=== PATIENT | male | born 1940 ===

== ENCOUNTER 2017-06-04 06:19 | Inpatient (IN) | payer SELFPAY ==
[2017-06-04 06:20] VITALS: BMI 26.6
[2017-06-04] MEDS ORDERED: Albuterol-Ipratrop 3 mg / 0.5 (3 ml) UD IH STA (07:35)
--- NOTE | 2017-06-04 07:53 | C.PDOC ---
History Of Present Illness 76 y/o male, homeless, is brought to ED by EMS after being found sleeping at [facility]. Pt complains of cough, SOB and not feeling well. Pt states that he was seen at [facility] [facility] earlier, but did not want to be treated there at that time. Denies chest pain, shortness of breath, sputum, or fever. Time Seen by Provider: 06/04/17 07:19 Chief Complaint (Nursing): Medical Clearance History Per: Patient History/Exam Limitations: no limitations Onset/Duration Of Symptoms: Hrs Current Symptoms Are (Timing): Still Present Severity: None Pain Scale Rating Of: 0 Reports Recently: Seen In ED Recent travel outside of the [place]: No Additional History Per: Patient, EMS Past Medical History Reviewed: Historical Data, Nursing Documentation, Vital Signs Vital Signs: Last Vital Signs Temp 98.3 F 06/04/17 13:58 Pulse 78 06/04/17 13:58 Resp 20 06/04/17 13:58 BP 116/80 06/04/17 13:58 Pulse Ox 94 L 06/04/17 15:32 - Medical History PMH: Anxiety, COPD Denies: HIV, Chronic Kidney Disease - [facility] Procedures INTRODUCE OF OTH THERAP SUBST INTO RESP TRACT, VIA OPENING (05/29/17) INTRODUCTION OF SERUM/TOX/VACCINE INTO MUSCLE, PERC APPROACH (05/24/17) Family History: States: Unknown Family Hx - Social History Hx Alcohol Use: No Hx Substance Use: No - Immunization History Hx Tetanus Toxoid Vaccination: No Hx Influenza Vaccination: No Review Of Systems Except As Marked, All Systems Reviewed And Found Negative. Constitutional: Negative for: Fever, Chills Cardiovascular: Negative for: Chest Pain, Palpitations, Edema, Light Headedness Respiratory: Positive for: Cough. Negative for: Shortness of Breath, Hemoptysis , Sputum Physical Exam - Physical Exam Appears: Non-toxic, No Acute Distress, Unkempt (disheveled) Skin: Normal Color, Warm, Dry Head: Atraumatic, Normacephalic Eye(s): bilateral: Normal Inspection Oral Mucosa: Moist Neck: Normal ROM, Supple Chest: Symmetrical Cardiovascular: Rhythm Regular, No Murmur Respiratory: No Accessory Muscle Use, No Rales, Rhonchi, No Wheezing Gastrointestinal/Abdominal: Soft, No Tenderness Extremity: Normal ROM, No Pedal Edema, No Deformity Neurological/Psych: Oriented x3, Normal Speech, Normal Cognition Gait: Steady ED Course And Treatment - Laboratory Results Result Diagrams: 06/04/17 10:36 06/04/17 10:36 Lab Interpretation: No Acute Changes ECG: Interpreted By Me ECG Rhythm: Sinus Rhythm, R BBB ECG Interpretation: No Acute Changes Rate From EC O2 Sat by Pulse Oximetry: 94 Pulse Ox Interpretation: Normal - Radiology CXR: Interpreted by Me CXR Interpretation: Yes: No Acute Disease Progress Note: CXR ordered and reviewed. Patient was given nebulizer treatment. Labs ordered. Treated with duonebs and solumedrol IV. Patient reports cough and dyspnea. 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 - Scribe Statement The provider has reviewed the documentation as recorded by the Scribe Ranjith Acevedo All medical record entries made by the Sin were at my direction and personally dictated by me. I have reviewed the chart and agree that the record accurately reflects my personal performance of the history, physical exam, medical decision making, and the department course for this patient. I have also personally directed, reviewed, and agree with the discharge instructions and disposition. Decision To Admit - Pt Status Changed To: Hospital Disposition Of: Observation - InPatient: Physician Admission Certification: I certify that this patient requires 2 or more midnights of care for the following reason:: COPD exacerbation. Dyspnea - . Bed Request Type: Regular Admitting Physician: Anamika Cardozo Patient Diagnosis: COPD exacerbation, Dyspnea
[2017-06-04] MEDS ORDERED: Albuterol-Ipratrop 3 mg / 0.5 (3 ml) UD ONE (08:19)
--- NOTE | 2017-06-04 09:42 | RAD ---
HISTORY: Cough COMPARISON: No prior. TECHNIQUE: Chest PA and lateral FINDINGS: LUNGS: Biapical pleural thickening with upper lobe granulomatous changes. Prominent diffuse increased interstitial lung markings bilaterally which may represent underlying edema and or infiltrate superimposed on chronic fibrotic changes. Scattered nodular densities in both lungs. More patchy consolidative changes at the right lung base and left costophrenic angle. PLEURA: Small right and trace left pleural effusion. CARDIOVASCULAR: Cardiomegaly. Calcification at the aortic knob. OSSEOUS STRUCTURES: Degenerative changes in the spine and shoulders. VISUALIZED UPPER ABDOMEN: Normal. OTHER FINDINGS: None. IMPRESSION: Biapical pleural thickening with upper lobe granulomatous changes. Prominent diffuse increased interstitial lung markings bilaterally which may represent underlying edema and or infiltrate superimposed on chronic fibrotic changes. Scattered nodular densities in both lungs. More patchy consolidative changes at the right lung base and left costophrenic angle.
[2017-06-04 10:44] LABS: BASO # 0.1 K/uL (0.0-0.2); BASO % 0.6 % (0.0-2.0); EOS # 0.1 K/uL (0.0-0.7); EOS % 0.7 % (0.0-4.0); HEMATOCRIT 35.9 % (35.0-51.0); LYMPH % 12.2 % (20.0-40.0); MEAN CELL VOLUME 77.2 fL (80.0-94.0); MEAN CORPUSCULAR HEMOGLOBIN 24.5 pg (27.0-31.0); MEAN CORPUSCULAR HGB CONC 31.7 g/dL (33.0-37.0); MEAN PLATELET VOLUME 7.9 fL (7.2-11.7); MONO # 0.7 K/uL (0.0-0.8); MONO % 8.5 % (0.0-10.0); RED CELL DISTRIBUTION WIDTH 17.2 % (11.5-14.5); WHITE BLOOD COUNT 8.4 K/uL (4.8-10.8)
[2017-06-04 10:50] LABS: CHLORIDE 97 mmol/L (98-107)
[2017-06-04 10:51] LABS: POTASSIUM 3.8 mmol/L (3.6-5.2); SODIUM 131 mmol/L (132-148)
[2017-06-04 10:53] LABS: ALB/GLOB RATIO 0.9 (1.0-2.1); ALKALINE PHOSPHATASE 91 U/L (38-126); AST/SGOT 17 U/L (17-59); BILIRUBIN,TOTAL 0.8 mg/dL (0.2-1.3); BLOOD UREA NITROGEN 22 mg/dL (9-20); CARBON DIOXIDE 26 mmol/L (22-30); GFR AFRICAN-AMERICAN > 60; TOTAL PROTEIN 5.8 g/dL (6.3-8.3)
[2017-06-04 10:54] LABS: ALT/SGPT 27 U/L (21-72); CALCIUM 6.9 mg/dl (8.6-10.4); GLUCOSE,RANDOM 113 mg/dL (75-110)
[2017-06-04 12:20] LABS: RBC URINE 1 /hpf (0-3); URINE BACTERIA RARE (<OCC); URINE BILIRUBIN NEGATIVE (NEGATIVE); URINE BLOOD NEGATIVE (NEGATIVE); URINE CALCIUM OXALATE CRYSTALS MOD /hpf (<OCC); URINE COLOR Yellow (YELLOW); URINE GLUCOSE (UA) NORMAL (Normal); URINE KETONE NEGATIVE (NEGATIVE); URINE LEUKOCYTE ESTERASE NEG Leu/uL (Negative); URINE PROTEIN NEGATIVE (NEGATIVE); URINE UROBILINOGEN NORMAL mg/dL (0.2-1.0); WBC URINE 3 /hpf (0-5)
[2017-06-04] MEDS ORDERED: MethylPREDNISolone 40 mg Vial IVP STA (13:15)
[2017-06-04] MEDS ORDERED: MethylPREDNISolone 40 mg Vial ONE (13:40)
--- NOTE | 2017-06-04 15:21 | CP.PCM.HP ---
<Negrito Delgado Izabella - Last Filed: 06/04/17 17:43> History of Present Illness - History of Present Illness History of Present Illness: This is a 76 year old homeless male with a past medical history COPD and Pulmonary Fibrosis, who was brought to the ED by EMS after he was found sleeping at [facility] and the complained of shortness of breath. He still currently complains of shortness of breath. He's had previous admissions for the same complaint. He is a poor historian and some of the history was collected from previous notes. He denies chest pain, fever, chills, dizziness, nausea and vomiting. 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 absent: Dyspnea - Gastrointestinal Gastrointestinal: absent: Abdominal Pain, Constipation, Diarrhea - Genitourinary Genitourinary: absent: Dysuria - Musculoskeletal Musculoskeletal: absent: Back Pain - Neurological Neurological: absent: Convulsions, Dizziness Past Patient History - Infectious Disease Hx of Infectious Diseases: None - Tetanus Immunizations Tetanus Immunization: Unknown - Past Medical History & Family History Past Medical History?: Yes - Past Social History Smoking Status: Never Smoked - CARDIAC Hx Cardiac Disorders: No - PULMONARY Hx Chronic Obstructive Pulmonary Disease (COPD): Yes - NEUROLOGICAL Hx Neurological Disorder: No - HEENT Hx HEENT Problems: No - RENAL Hx Chronic Kidney Disease: No - ENDOCRINE/METABOLIC Hx Endocrine Disorders: No - HEMATOLOGICAL/ONCOLOGICAL Hx Human Immunodeficiency Virus (HIV): No - INTEGUMENTARY Hx Dermatological Problems: No - MUSCULOSKELETAL/RHEUMATOLOGICAL Hx Musculoskeletal Disorders: No Hx Falls: No - GASTROINTESTINAL Hx Gastrointestinal Disorders: No - GENITOURINARY/GYNECOLOGICAL Hx Genitourinary Disorders: No - PSYCHIATRIC Hx Anxiety: Yes Hx Substance Use: No - SURGICAL HISTORY Hx Surgeries: No - ANESTHESIA Hx Anesthesia: Yes Hx Anesthesia Reactions: No Hx Malignant Hyperthermia: No Meds Home Medications: Home Medication List Medication Instructions Recorded Confirmed Type Albuterol HFA [Ventolin HFA 90 2 puff IH Q4 PRN #1 inhaler 06/08/17 Rx mcg/actuation (8 g)] Fluticasone Propionate [Flovent 0.11 mg IH Q12H #1 ml 06/08/17 Rx Hfa] Furosemide [Lasix] 20 mg PO DAILY #10 udc 06/08/17 Rx Methylprednisolone Sod Succ 10 gm PO TID #8 pds 06/08/17 Rx [Solu-Medrol] Allergies/Adverse Reactions: Allergies Allergy/AdvReac Type Severity Reaction Status Date / Time No Known Allergies Allergy Verified 06/04/17 06:34 Physical Exam - Constitutional Appears: No Acute Distress, Unkempt - Head Exam Head Exam: ATRAUMATIC, NORMAL INSPECTION - Eye Exam Eye Exam: EOMI - ENT Exam ENT Exam: Mucous Membranes Moist - Neck Exam Neck exam: Positive for: Normal Inspection. Negative for: Tenderness - Respiratory Exam Respiratory Exam: Rales, Rhonchi, Wheezes. absent: Clear to Auscultation Bilateral - Cardiovascular Exam Cardiovascular Exam: REGULAR RHYTHM, RRR, +S1, +S2. absent: Bradycardia, Tachycardia, Irregular Rhythm - GI/Abdominal Exam GI & Abdominal Exam: Normal Bowel Sounds, Soft. absent: Tenderness - Extremities Exam Extremities exam: Positive for: normal inspection. Negative for: pedal edema Additional comments: digital clubbing noted - Back Exam Back exam: NORMAL INSPECTION - Neurological Exam Neurological exam: Alert, Oriented x3 - Psychiatric Exam Psychiatric exam: Normal Affect, Normal Mood - Skin Skin Exam: Intact, Normal Color, Warm Results - Vital Signs Recent Vital Signs: Last Vital Signs Temp 98.3 F 06/04/17 13:58 Pulse 78 06/04/17 13:58 Resp 20 06/04/17 13:58 BP 116/80 06/04/17 13:58 Pulse Ox 95 06/04/17 13:58 - Labs Result Diagrams: 06/04/17 10:36 06/04/17 10:36 Labs: Laboratory Results - last 24 hr 06/04/17 06/04/17 06/04/17 10:36 10:36 12:10 WBC 8.4 RBC 4.65 Hgb 11.4 L Hct 35.9 MCV 77.2 L MCH 24.5 L MCHC 31.7 L RDW 17.2 H Plt Count 244 MPV 7.9 Neut % (Auto) 78.0 H Lymph % (Auto) 12.2 L [place] % (Auto) 8.5 Eos % (Auto) 0.7 Baso % (Auto) 0.6 Neut # 6.6 Lymph # 1.0 [place] # 0.7 Eos # 0.1 Baso # 0.1 Sodium 131 L Potassium 3.8 Chloride 97 L Carbon Dioxide 26 Anion Gap 12 BUN 22 H Creatinine 0.6 L Est GFR ( Amer) > 60 Est GFR (Non-Af Amer) > 60 Random Glucose 113 H Calcium 6.9 L Total Bilirubin 0.8 AST 17 D ALT 27 Alkaline Phosphatase 91 CK-MB (Mass) 1.24 Troponin I < 0.0120 NT-Pro-B Natriuret Pep 138 Total Protein 5.8 L Albumin 2.7 L Globulin 3.1 Albumin/Globulin Ratio 0.9 L Lipase 135 Urine Color Yellow Urine Clarity Clear Urine pH 5.0 Ur Specific [place] 1.026 Urine Protein Negative Urine Glucose (UA) Normal Urine Ketones Negative Urine Blood Negative Urine Nitrate Negative Urine Bilirubin Negative Urine Urobilinogen Normal Ur Leukocyte Esterase Neg Urine WBC (Auto) 3 Urine RBC (Auto) 1 Ur Squamous Epith Cells 1 Calcium Oxalate Crystal Mod H Urine Bacteria Rare Assessment & Plan (1) COPD exacerbation Assessment and Plan: Patient w/ baseline wheezing, saturating 94% CXR 06/04/17 no active disease Duonebs via nebulizer q4h Prednisone 20mg po qd Advair 1 puff q12h Azithromycin 500mg ivpb qd started 06/05/17, for 7 days sputum culture, f/u Status: Acute (2) Anemia Assessment and Plan: Hgb 11.4 on admission Most likely anemia of chronic disease Status: Chronic (3) DM type 2 (diabetes mellitus, type 2) Assessment and Plan: Accuchecks RISS - low dose Diabetic Diet HgA1C, f/u Status: Chronic (4) Pulmonary fibrosis Assessment and Plan: Chronic 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 (5) Homeless Assessment and Plan: Will discharge to senior care Status: Chronic (6) Prophylactic measure Assessment and Plan: consistent carb diet SCDs lovenox 40mg sc qd Pepcid 20mg po qd Status: Acute <Jerry Regalado - Last Filed: 06/08/17 15:31> History of Present Illness - History of Present Illness History of Present Illness: CC: Shortness of breath Results - Vital Signs Recent Vital Signs: Last Vital Signs Temp 97.9 F 06/08/17 07:12 Pulse 75 06/08/17 07:12 Resp 20 06/08/17 07:12 BP 133/75 06/08/17 10:31 Pulse Ox 96 06/08/17 07:12 - Labs Result Diagrams: 06/08/17 06:24 06/08/17 06:24 Labs: Laboratory Results - last 24 hr 06/07/17 06/07/17 06/08/17 16:17 21:02 06:24 WBC 8.8 RBC 4.58 Hgb 11.2 L Hct 35.6 MCV 77.6 L MCH 24.3 L MCHC 31.4 L RDW 18.0 H Plt Count 228 MPV 8.1 Neut % (Auto) 80.6 H Lymph % (Auto) 10.3 L [place] % (Auto) 9.0 Eos % (Auto) 0.0 Baso % (Auto) 0.1 Neut # 7.1 H Lymph # 0.9 L [place] # 0.8 Eos # 0.0 Baso # 0.0 Sodium Potassium Chloride Carbon Dioxide Anion Gap BUN Creatinine Est GFR ( Amer) Est GFR (Non-Af Amer) POC Glucose (mg/dL) 291 H 388 H Random Glucose Calcium Total Bilirubin AST ALT Alkaline Phosphatase Total Protein Albumin Globulin Albumin/Globulin Ratio 06/08/17 06/08/17 06/08/17 06:24 07:25 11:14 WBC RBC Hgb Hct MCV MCH MCHC RDW Plt Count MPV Neut % (Auto) Lymph % (Auto) [place] % (Auto) Eos % (Auto) Baso % (Auto) Neut # Lymph # [place] # Eos # Baso # Sodium 132 Potassium 4.6 Chloride 95 L Carbon Dioxide 28 Anion Gap 14 BUN 25 H Creatinine 0.8 Est GFR ( Amer) > 60 Est GFR (Non-Af Amer) > 60 POC Glucose (mg/dL) 148 H 309 H Random Glucose 220 H Calcium 8.3 L Total Bilirubin 0.6 AST 18 ALT 34 Alkaline Phosphatase 96 Total Protein 7.0 Albumin 2.9 L Globulin 4.1 H Albumin/Globulin Ratio 0.7 L Attending/Attestation - Attestation I have personally seen and examined this patient.: Yes I have fully participated in the care of the patient.: Yes I have reviewed all pertinent clinical information: Yes Notes (Text): Acute copd exacerbation
[2017-06-04] MEDS: Fluticasone-Salmeterol 250-50mcg Diskus INH SCH (22:05)
[2017-06-04] MEDS: Albuterol-Ipratrop 3 mg / 0.5 (3 ml) UD INH SCH (22:06)
[2017-06-04] MEDS: (Novolin R) Insulin Human Regular 100 units/ml vial SC SCH (22:06)
[2017-06-05] MEDS: Albuterol-Ipratrop 3 mg / 0.5 (3 ml) UD INH SCH ×6 (00:43→20:20)
[2017-06-05] MEDS: Fluticasone-Salmeterol 250-50mcg Diskus INH SCH ×2 (07:45→20:21)
[2017-06-05 08:31] VITALS: RESP 20
[2017-06-05] MEDS: (Novolin R) Insulin Human Regular 100 units/ml vial SC SCH ×4 (09:08→21:44)
[2017-06-05] MEDS: Azithromycin 500 MG in Sodium Chloride 0.9% 250 ML IVPB SCH (10:40)
[2017-06-05] MEDS: Enoxaparin 40 mg Syringe SC SCH (10:41)
--- NOTE | 2017-06-05 12:27 | CP.PCM.PN ---
<Negrito Delgado - Last Filed: 06/05/17 12:25> Subjective - Date & Time of Evaluation Date of Evaluation: 06/05/17 Time of Evaluation: 12:25 - Subjective Subjective: PGY-1 medicine note. There were no acute events overnight. Patient was seen and examined this AM at bedside. Patient was resting comfortably in bed watching television. Patient had no complaints at this time. He said he was not hearing voices. Patient denied chest pain, shortness of breath, nausea, vomiting, fever, chills, diarrhea, constipation, headache, vision changes, abdominal pain. Objective - Vital Signs/Intake and Output Vital Signs (last 24 hours): Temp Pulse Resp BP Pulse Ox 98.1 F 78 20 105/61 96 06/05/17 08:30 06/05/17 08:30 06/05/17 08:30 06/05/17 08:30 06/05/17 08:30 Intake and Output: 06/05/17 06/05/17 06:59 18:59 Intake Total 250 240 Output Total 200 Balance 250 40 - Medications Medications: Current Medications Albuterol/Ipratropium (Duoneb 3 Mg/0.5 Mg (3 Ml) Ud) 3 ml INH RQ4 [facility] Last Admin: 06/05/17 07:45 Dose: 3 ml Enoxaparin Sodium (Lovenox) 40 mg SC DAILY [facility] Last Admin: 06/05/17 10:41 Dose: 40 mg Famotidine (Pepcid) 20 mg IVP DAILY [facility] Last Admin: 06/05/17 10:41 Dose: 20 mg Azithromycin 500 mg/ Sodium (Chloride) 250 mls @ 250 mls/hr IVPB DAILY [facility] Stop: 06/11/17 10:59 Last Admin: 06/05/17 10:40 Dose: 250 mls/hr Insulin Human Regular (Novolin R) 0 unit SC ACHS [facility] PRN Reason: Protocol Last Admin: 06/05/17 09:08 Dose: 4 unit Prednisone (Prednisone Tab) 20 mg PO DAILY [facility] Last Admin: 06/05/17 10:41 Dose: 20 mg Fluticasone/Salmeterol (Advair Diskus 250/50) 1 puff INH RQ12 [facility] Last Admin: 06/05/17 07:45 Dose: 1 puff - Labs Labs: 06/04/17 10:36 06/04/17 10:36 - Additional Findings Additional findings: - Constitutional Appears: No Acute Distress, Unkempt - Head Exam Head Exam: ATRAUMATIC, NORMAL INSPECTION - Eye Exam Eye Exam: EOMI - ENT Exam ENT Exam: Mucous Membranes Moist - Neck Exam Neck exam: Positive for: Normal Inspection. Negative for: Tenderness - Respiratory Exam Respiratory Exam: Wheezes. absent: Clear to Auscultation Bilateral - Cardiovascular Exam Cardiovascular Exam: REGULAR RHYTHM, RRR, +S1, +S2. absent: Bradycardia, Tachycardia, Irregular Rhythm - GI/Abdominal Exam GI & Abdominal Exam: Normal Bowel Sounds, Soft. absent: Tenderness - Extremities Exam Extremities exam: Positive for: normal inspection. Negative for: pedal edema Additional comments: digital clubbing noted - Back Exam Back exam: NORMAL INSPECTION - Neurological Exam Neurological exam: Alert, Oriented x3 - Psychiatric Exam Psychiatric exam: Normal Affect, Normal Mood - Skin Skin Exam: Intact, Normal Color, Warm Assessment and Plan (1) COPD exacerbation Status: Acute (2) Anemia Status: Chronic (3) DM type 2 (diabetes mellitus, type 2) Status: Chronic (4) Pulmonary fibrosis Status: Chronic (5) Homeless Status: Chronic (6) Prophylactic measure Status: Acute - Assessment and Plan (Free Text) Assessment: (1) COPD exacerbation Assessment and Plan: Patient w/ baseline wheezing, saturating 94% CXR 06/04/17 no active disease Duonebs via nebulizer q4h Prednisone 20mg po qd Advair 1 puff q12h Azithromycin 500mg ivpb qd started 06/05/17, for 7 days sputum culture, f/u Status: Acute (2) Anemia Assessment and Plan: Hgb 11.4 on admission Most likely anemia of chronic disease Status: Chronic (3) DM type 2 (diabetes mellitus, type 2) Assessment and Plan: Accuchecks RISS - low dose Diabetic Diet HgA1C, f/u Status: Chronic (4) Pulmonary fibrosis Assessment and Plan: Chronic 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 (5) Homeless Assessment and Plan: Will discharge to [facility] Status: Chronic (6) Prophylactic measure Assessment and Plan: consistent carb diet SCDs lovenox 40mg sc qd Pepcid 20mg po qd Status: Acute <Anamika Cardozo - Last Filed: 06/05/17 14:01> Objective - Vital Signs/Intake and Output Vital Signs (last 24 hours): Temp Pulse Resp BP Pulse Ox 98.1 F 78 20 105/61 96 06/05/17 08:30 06/05/17 08:30 06/05/17 08:30 06/05/17 08:30 06/05/17 08:30 Intake and Output: 06/05/17 06/05/17 06:59 18:59 Intake Total 250 240 Output Total 200 Balance 250 40 - Medications Medications: Current Medications Albuterol/Ipratropium (Duoneb 3 Mg/0.5 Mg (3 Ml) Ud) 3 ml INH RQ4 [facility] Last Admin: 06/05/17 07:45 Dose: 3 ml Enoxaparin Sodium (Lovenox) 40 mg SC DAILY [facility] Last Admin: 06/05/17 10:41 Dose: 40 mg Famotidine (Pepcid) 20 mg IVP DAILY [facility] Last Admin: 06/05/17 10:41 Dose: 20 mg Azithromycin 500 mg/ Sodium (Chloride) 250 mls @ 250 mls/hr IVPB DAILY [facility] Stop: 06/11/17 10:59 Last Admin: 06/05/17 10:40 Dose: 250 mls/hr Insulin Human Regular (Novolin R) 0 unit SC ACHS [facility] PRN Reason: Protocol Last Admin: 06/05/17 13:24 Dose: 3 unit Prednisone (Prednisone Tab) 20 mg PO DAILY [facility] Last Admin: 06/05/17 10:41 Dose: 20 mg Fluticasone/Salmeterol (Advair Diskus 250/50) 1 puff INH RQ12 [facility] Last Admin: 06/05/17 07:45 Dose: 1 puff - Labs Labs: 06/04/17 10:36 06/04/17 10:36 Attending/Attestation - Attestation I have personally seen and examined this patient.: Yes I have fully participated in the care of the patient.: Yes I have reviewed all pertinent clinical information, including history, physical exam and plan: Yes Notes (Text): This is a 76 years old Homeless male with history of COPD,pulmonary fibrosis, anemia,diabetes mellitus was brought in for SOB 1.Exacerbation of COPD and bronchitis Has wheezing and cough chest x ray without pneumonia on zithromax,solumedrol,duoneb and advair 2 Anemia likely chronic 3.DM 4.Pulmonary fibrosis 5.Homeless 6.Leg edema- Echo done on 12/21/2016 normal EF,mild to moderate dilated RV and mild to moderste impaired RV function patient was seen and examined.Discussed with the resident I agree with the documentation of the resident's assessment and plan
[2017-06-05 13:54] LABS: BASO % 0.2 % (0.0-2.0); HEMATOCRIT 31.8 % (35.0-51.0); LYMPH # 0.8 K/uL (1.0-4.3); LYMPH % 9.2 % (20.0-40.0); MEAN CELL VOLUME 77.5 fL (80.0-94.0); MEAN CORPUSCULAR HEMOGLOBIN 24.6 pg (27.0-31.0); MEAN CORPUSCULAR HGB CONC 31.8 g/dL (33.0-37.0); MEAN PLATELET VOLUME 8.1 fL (7.2-11.7); MONO # 0.4 K/uL (0.0-0.8); MONO % 5.3 % (0.0-10.0); PLATELET COUNT 216 K/uL (130-400); RED CELL DISTRIBUTION WIDTH 17.4 % (11.5-14.5); WHITE BLOOD COUNT 8.2 K/uL (4.8-10.8)
[2017-06-05 14:05] LABS: CHLORIDE 99 mmol/L (98-107); SODIUM 131 mmol/L (132-148)
[2017-06-05 14:06] LABS: POTASSIUM 4.5 mmol/L (3.6-5.2)
[2017-06-05 14:08] LABS: ALB/GLOB RATIO 0.9 (1.0-2.1); ALKALINE PHOSPHATASE 100 U/L (38-126); ALT/SGPT 27 U/L (21-72); AST/SGOT 21 U/L (17-59); BILIRUBIN,TOTAL 0.6 mg/dL (0.2-1.3); BLOOD UREA NITROGEN 18 mg/dL (9-20); CARBON DIOXIDE 26 mmol/L (22-30); GFR AFRICAN-AMERICAN > 60; GLUCOSE,RANDOM 153 mg/dL (75-110); TOTAL PROTEIN 5.6 g/dL (6.3-8.3)
[2017-06-05 14:09] LABS: CALCIUM 7.7 mg/dl (8.6-10.4)
[2017-06-05 14:32] LABS: NEUTROPHIL 95 % (50-75); TOTAL CELLS COUNTED 100
[2017-06-05] MEDS: MethylPREDNISolone 40 mg Vial IVP SCH (18:02)
[2017-06-06] MEDS: Albuterol-Ipratrop 3 mg / 0.5 (3 ml) UD INH SCH ×6 (00:49→23:41)
[2017-06-06 07:15] LABS: BASO % 0.1 % (0.0-2.0); HEMATOCRIT 29.9 % (35.0-51.0); LYMPH % 12.8 % (20.0-40.0); MEAN CELL VOLUME 77.7 fL (80.0-94.0); MEAN CORPUSCULAR HEMOGLOBIN 24.6 pg (27.0-31.0); MEAN CORPUSCULAR HGB CONC 31.7 g/dL (33.0-37.0); MEAN PLATELET VOLUME 7.9 fL (7.2-11.7); MONO # 0.5 K/uL (0.0-0.8); MONO % 7.2 % (0.0-10.0); NRBC % 0.1 % (0.0-2.0); RED CELL DISTRIBUTION WIDTH 17.6 % (11.5-14.5); WHITE BLOOD COUNT 7.5 K/uL (4.8-10.8)
[2017-06-06 08:27] LABS: CHLORIDE 98 mmol/L (98-107)
[2017-06-06 08:28] LABS: POTASSIUM 4.4 mmol/L (3.6-5.2); SODIUM 131 mmol/L (132-148)
[2017-06-06 08:30] LABS: ALB/GLOB RATIO 0.8 (1.0-2.1); AST/SGOT 19 U/L (17-59); BILIRUBIN,TOTAL 0.5 mg/dL (0.2-1.3); BLOOD UREA NITROGEN 19 mg/dL (9-20); CARBON DIOXIDE 27 mmol/L (22-30); GFR AFRICAN-AMERICAN > 60; GLUCOSE,RANDOM 239 mg/dL (75-110); TOTAL PROTEIN 5.3 g/dL (6.3-8.3)
[2017-06-06 08:31] LABS: ALKALINE PHOSPHATASE 85 U/L (38-126); ALT/SGPT 30 U/L (21-72); CALCIUM 7.6 mg/dl (8.6-10.4)
[2017-06-06] MEDS: Fluticasone-Salmeterol 250-50mcg Diskus INH SCH ×2 (08:38→21:01)
[2017-06-06] MEDS: (Novolin R) Insulin Human Regular 100 units/ml vial SC SCH ×4 (08:39→22:06)
--- NOTE | 2017-06-06 11:06 | CARD ---
APPROVED REPORT EKG Measurement Heart [id number] <Conclusion> Normal sinus rhythm Right bundle branch block Abnormal ECG
[2017-06-06] MEDS: Azithromycin 500 MG in Sodium Chloride 0.9% 250 ML IVPB SCH (11:37)
[2017-06-06] MEDS: MethylPREDNISolone 40 mg Vial IVP SCH ×2 (11:38→18:28)
[2017-06-06] MEDS: Enoxaparin 40 mg Syringe SC SCH (11:38)
--- NOTE | 2017-06-06 15:34 | CP.PCM.PN ---
<Negrito Delgado R - Last Filed: 06/06/17 15:29> Subjective - Date & Time of Evaluation Date of Evaluation: 06/06/17 Time of Evaluation: 15:29 - Subjective Subjective: PGY-1 medicine note. No acute events overnight. Patient was seen and examined at bedside. He is AAOx2 (he did not know what year it was). Patient had no complaints at this time. Patient denied chest pain, shortness of breath, nausea, vomiting, fever, chills, diarrhea, constipation, headache, vision changes, abdominal pain. Objective - Vital Signs/Intake and Output Vital Signs (last 24 hours): Temp Pulse Resp BP Pulse Ox 98.1 F 80 20 148/74 98 06/06/17 08:18 06/06/17 08:18 06/06/17 08:18 06/06/17 08:18 06/06/17 08:18 Intake and Output: 06/06/17 06/06/17 06:59 18:59 Intake Total 840 Output Total 1000 Balance -160 - Medications Medications: Current Medications Albuterol/Ipratropium (Duoneb 3 Mg/0.5 Mg (3 Ml) Ud) 3 ml INH RQ4 [facility] Last Admin: 06/06/17 11:27 Dose: 3 ml Enoxaparin Sodium (Lovenox) 40 mg SC DAILY [facility] Last Admin: 06/06/17 11:38 Dose: 40 mg Famotidine (Pepcid) 20 mg IVP DAILY [facility] Last Admin: 06/06/17 11:39 Dose: 20 mg Azithromycin 500 mg/ Sodium (Chloride) 250 mls @ 250 mls/hr IVPB DAILY [facility] Stop: 06/11/17 10:59 Last Admin: 06/06/17 11:37 Dose: 250 mls/hr Insulin Human Regular (Novolin R) 0 unit SC ACHS [facility] PRN Reason: Protocol Last Admin: 06/06/17 11:43 Dose: 2 unit Methylprednisolone (Solu-Medrol) 40 mg IVP BID [facility] Last Admin: 06/06/17 11:38 Dose: 40 mg Fluticasone/Salmeterol (Advair Diskus 250/50) 1 puff INH RQ12 [facility] Last Admin: 06/06/17 08:38 Dose: 1 puff - Labs Labs: 06/06/17 06:58 06/06/17 06:58 - Additional Findings Additional findings: - Constitutional Appears: No Acute Distress, Unkempt - Head Exam Head Exam: ATRAUMATIC, NORMAL INSPECTION - Eye Exam Eye Exam: EOMI - ENT Exam ENT Exam: Mucous Membranes Moist - Neck Exam Neck exam: Positive for: Normal Inspection. Negative for: Tenderness - Respiratory Exam Respiratory Exam: Wheezes. absent: Clear to Auscultation Bilateral - Cardiovascular Exam Cardiovascular Exam: REGULAR RHYTHM, RRR, +S1, +S2. absent: Bradycardia, Tachycardia, Irregular Rhythm - GI/Abdominal Exam GI & Abdominal Exam: Normal Bowel Sounds, Soft. absent: Tenderness - Extremities Exam Extremities exam: Positive for: normal inspection. Negative for: pedal edema Additional comments: digital clubbing noted - Back Exam Back exam: NORMAL INSPECTION - Neurological Exam Neurological exam: Alert, Oriented x3 - Psychiatric Exam Psychiatric exam: Normal Affect, Normal Mood - Skin Skin Exam: Intact, Normal Color, Warm Assessment and Plan (1) COPD exacerbation Status: Acute (2) Anemia Status: Chronic (3) DM type 2 (diabetes mellitus, type 2) Status: Chronic (4) Pulmonary fibrosis Status: Chronic (5) Homeless Status: Chronic (6) Prophylactic measure Status: Acute - Assessment and Plan (Free Text) Assessment: (1) COPD exacerbation Assessment and Plan: Patient w/ baseline wheezing, saturating 94% CXR 06/04/17 no active disease Duonebs via nebulizer q4h solu-medrol 40mg ivp bid Advair 1 puff q12h Azithromycin 500mg ivpb qd started 06/05/17, for 7 days sputum culture, f/u Status: Acute (2) Anemia Assessment and Plan: Hgb 11.4 on admission Most likely anemia of chronic disease Status: Chronic (3) DM type 2 (diabetes mellitus, type 2) Assessment and Plan: Accuchecks RISS - low dose Diabetic Diet HgA1C 8.0 Status: Chronic (4) Pulmonary fibrosis Assessment and Plan: Chronic 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 (5) Homeless Assessment and Plan: Will discharge to long-term Status: Chronic (6) Prophylactic measure Assessment and Plan: consistent carb diet SCDs lovenox 40mg sc qd Pepcid 20mg po qd Social work referral, pt is homeless Status: Acute <Fito Bacon - Last Filed: 06/06/17 16:39> Objective - Vital Signs/Intake and Output Vital Signs (last 24 hours): Temp Pulse Resp BP Pulse Ox 98.1 F 80 20 148/74 98 06/06/17 08:18 06/06/17 08:18 06/06/17 08:18 06/06/17 08:18 06/06/17 08:18 Intake and Output: 06/06/17 06/06/17 06:59 18:59 Intake Total 840 490 Output Total 1000 Balance -160 490 - Medications Medications: Current Medications Albuterol/Ipratropium (Duoneb 3 Mg/0.5 Mg (3 Ml) Ud) 3 ml INH RQ4 [facility] Last Admin: 06/06/17 15:59 Dose: 3 ml Enoxaparin Sodium (Lovenox) 40 mg SC DAILY [facility] Last Admin: 06/06/17 11:38 Dose: 40 mg Famotidine (Pepcid) 20 mg IVP DAILY [facility] Last Admin: 06/06/17 11:39 Dose: 20 mg Azithromycin 500 mg/ Sodium (Chloride) 250 mls @ 250 mls/hr IVPB DAILY [facility] Stop: 06/11/17 10:59 Last Admin: 06/06/17 11:37 Dose: 250 mls/hr Insulin Human Regular (Novolin R) 0 unit SC ACHS [facility] PRN Reason: Protocol Last Admin: 06/06/17 11:43 Dose: 2 unit Methylprednisolone (Solu-Medrol) 40 mg IVP BID [facility] Last Admin: 06/06/17 11:38 Dose: 40 mg Fluticasone/Salmeterol (Advair Diskus 250/50) 1 puff INH RQ12 [facility] Last Admin: 06/06/17 08:38 Dose: 1 puff - Labs Labs: 06/06/17 06:58 06/06/17 06:58 Attending/Attestation - Attestation I have personally seen and examined this patient.: Yes I have fully participated in the care of the patient.: Yes I have reviewed all pertinent clinical information, including history, physical exam and plan: Yes Notes (Text): Medical attending: Patient was seen and examined by me, agree with the above note by medical device. This is my first time seeing patient, reviewed previous labs and notes as well as discussed with the patient. On examination the patient still had active wheezing on exhalation however appeared to be minimal. At this time were to continue with IV Solu-Medrol as well as the DuoNeb nebulizers. Also will continue the Advair twice a day as well He is ready been started on IV antibiotics which we will be continuing. I explained to the patient possibly he could be discharged tomorrow Thank you very much Fito Bacon
[2017-06-07] MEDS: Albuterol-Ipratrop 3 mg / 0.5 (3 ml) UD INH SCH ×6 (03:13→23:46)
[2017-06-07 06:17] LABS: BASO % 0.1 % (0.0-2.0); HEMATOCRIT 31.3 % (35.0-51.0); LYMPH # 0.7 K/uL (1.0-4.3); LYMPH % 9.8 % (20.0-40.0); MEAN CELL VOLUME 77.2 fL (80.0-94.0); MEAN CORPUSCULAR HEMOGLOBIN 24.5 pg (27.0-31.0); MEAN CORPUSCULAR HGB CONC 31.7 g/dL (33.0-37.0); MEAN PLATELET VOLUME 8.1 fL (7.2-11.7); MONO # 0.4 K/uL (0.0-0.8); MONO % 5.6 % (0.0-10.0); PLATELET COUNT 201 K/uL (130-400); RED CELL DISTRIBUTION WIDTH 17.7 % (11.5-14.5); WHITE BLOOD COUNT 7.4 K/uL (4.8-10.8)
[2017-06-07 07:31] LABS: CHLORIDE 98 mmol/L (98-107); SODIUM 131 mmol/L (132-148)
[2017-06-07 07:33] LABS: BILIRUBIN,TOTAL 0.6 mg/dL (0.2-1.3); GFR AFRICAN-AMERICAN > 60
[2017-06-07 07:34] LABS: ALB/GLOB RATIO 0.9 (1.0-2.1); ALKALINE PHOSPHATASE 99 U/L (38-126); ALT/SGPT 27 U/L (21-72); AST/SGOT 18 U/L (17-59); BLOOD UREA NITROGEN 22 mg/dL (9-20); CALCIUM 7.5 mg/dl (8.6-10.4); CARBON DIOXIDE 27 mmol/L (22-30); GLUCOSE,RANDOM 262 mg/dL (75-110); TOTAL PROTEIN 5.4 g/dL (6.3-8.3)
[2017-06-07] MEDS: Fluticasone-Salmeterol 250-50mcg Diskus INH SCH ×2 (07:55→19:42)
[2017-06-07] MEDS: (Novolin R) Insulin Human Regular 100 units/ml vial SC SCH ×4 (08:08→23:26)
[2017-06-07 08:51] LABS: NEUTROPHIL 81 % (50-75); TOTAL CELLS COUNTED 100
[2017-06-07] MEDS: Enoxaparin 40 mg Syringe SC SCH (10:43)
[2017-06-07] MEDS: MethylPREDNISolone 40 mg Vial IVP SCH ×2 (12:00→17:31)
[2017-06-07] MEDS: Azithromycin 500 MG in Sodium Chloride 0.9% 250 ML IVPB SCH (12:01)
--- NOTE | 2017-06-07 15:19 | CP.PCM.PN ---
<Negrito Delgado - Last Filed: 06/07/17 15:12> Subjective - Date & Time of Evaluation Date of Evaluation: 06/07/17 Time of Evaluation: 14:20 - Subjective Subjective: PGY-1 medicine note. No acute events overnight. Patient was seen and examined at bedside. Patient probably has baseline dementia. Patient had no complaints at this time. Patient denied chest pain, shortness of breath, nausea, vomiting, fever, chills, diarrhea, constipation, headache, vision changes, abdominal pain. Objective - Vital Signs/Intake and Output Vital Signs (last 24 hours): Temp Pulse Resp BP Pulse Ox 98.1 F 87 20 135/71 95 06/07/17 08:26 06/07/17 08:26 06/07/17 08:26 06/07/17 08:26 06/07/17 08:26 Intake and Output: 06/07/17 06/07/17 06:59 18:59 Intake Total 550 500 Output Total 1250 Balance -700 500 - Medications Medications: Current Medications Albuterol/Ipratropium (Duoneb 3 Mg/0.5 Mg (3 Ml) Ud) 3 ml INH RQ4 [facility] Last Admin: 06/07/17 11:30 Dose: 3 ml Enoxaparin Sodium (Lovenox) 40 mg SC DAILY [facility] Last Admin: 06/07/17 10:43 Dose: 40 mg Famotidine (Pepcid) 20 mg IVP DAILY [facility] Last Admin: 06/07/17 12:00 Dose: 20 mg Famotidine (Pepcid) 20 mg IVP DAILY [facility] Azithromycin 500 mg/ Sodium (Chloride) 250 mls @ 250 mls/hr IVPB DAILY [facility] Stop: 06/11/17 10:59 Last Admin: 06/07/17 12:01 Dose: 250 mls/hr Azithromycin 500 mg/ Sodium (Chloride) 250 mls @ 250 mls/hr IVPB DAILY [facility] Stop: 06/11/17 10:59 Insulin Human Regular (Novolin R) 0 unit SC ACHS [facility] PRN Reason: Protocol Last Admin: 06/07/17 12:01 Dose: 6 unit Methylprednisolone (Solu-Medrol) 40 mg IVP BID [facility] Last Admin: 06/07/17 12:00 Dose: 40 mg Fluticasone/Salmeterol (Advair Diskus 250/50) 1 puff INH RQ12 [facility] Last Admin: 06/07/17 07:55 Dose: 1 puff - Labs Labs: 06/07/17 06:10 06/07/17 06:10 - Additional Findings Additional findings: - Constitutional Appears: No Acute Distress, Unkempt - Head Exam Head Exam: ATRAUMATIC, NORMAL INSPECTION - Eye Exam Eye Exam: EOMI - ENT Exam ENT Exam: Mucous Membranes Moist - Neck Exam Neck exam: Positive for: Normal Inspection. Negative for: Tenderness - Respiratory Exam Respiratory Exam: Wheezes. absent: Clear to Auscultation Bilateral - Cardiovascular Exam Cardiovascular Exam: REGULAR RHYTHM, RRR, +S1, +S2. absent: Bradycardia, Tachycardia, Irregular Rhythm - GI/Abdominal Exam GI & Abdominal Exam: Normal Bowel Sounds, Soft. absent: Tenderness - Extremities Exam Extremities exam: Positive for: normal inspection. Negative for: pedal edema Additional comments: digital clubbing noted - Back Exam Back exam: NORMAL INSPECTION - Neurological Exam Neurological exam: Alert, Oriented x3 - Psychiatric Exam Psychiatric exam: Normal Affect, Normal Mood - Skin Skin Exam: Intact, Normal Color, Warm Assessment and Plan (1) COPD exacerbation Status: Acute (2) Anemia Status: Chronic (3) DM type 2 (diabetes mellitus, type 2) Status: Chronic (4) Pulmonary fibrosis Status: Chronic (5) Homeless Status: Chronic (6) Prophylactic measure Status: Acute - Assessment and Plan (Free Text) Assessment: (1) COPD exacerbation Assessment and Plan: Patient w/ baseline wheezing, saturating 94% sputum culture, f/u CXR 06/04/17 no active disease Duonebs via nebulizer q4h solu-medrol 40mg ivp bid Advair 1 puff q12h - will discharge on flovent 110mcg Azithromycin 500mg ivpb qd started 06/05/17, for 7 days lasix 20mg ivp bid Status: Acute (2) Anemia Assessment and Plan: Hgb 11.4 on admission Most likely anemia of chronic disease Status: Chronic (3) DM type 2 (diabetes mellitus, type 2) Assessment and Plan: Accuchecks RISS - medium dose Diabetic Diet HgA1C 8.0 Status: Chronic (4) Pulmonary fibrosis Assessment and Plan: Chronic 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 (5) Homeless Assessment and Plan: Will discharge to skilled nursing Status: Chronic (6) Prophylactic measure Assessment and Plan: consistent carb diet SCDs lovenox 40mg sc qd Pepcid 20mg po qd Social work referral, pt is homeless Status: Acute <Fito Bacon H - Last Filed: 06/07/17 17:56> Objective - Vital Signs/Intake and Output Vital Signs (last 24 hours): Temp Pulse Resp BP Pulse Ox 97.4 F L 105 H 20 154/60 H 96 06/07/17 15:15 06/07/17 15:15 06/07/17 15:15 06/07/17 17:32 06/07/17 15:15 Intake and Output: 06/07/17 06/07/17 06:59 18:59 Intake Total 550 500 Output Total 1250 Balance -700 500 - Medications Medications: Current Medications Albuterol/Ipratropium (Duoneb 3 Mg/0.5 Mg (3 Ml) Ud) 3 ml INH RQ4 [facility] Last Admin: 06/07/17 16:15 Dose: 3 ml Azithromycin (Zithromax) 500 mg PO DAILY [facility] Stop: 06/11/17 10:01 Enoxaparin Sodium (Lovenox) 40 mg SC DAILY [facility] Last Admin: 06/07/17 10:43 Dose: 40 mg Famotidine (Pepcid) 20 mg PO DAILY [facility] Furosemide (Lasix) 20 mg IVP BID [facility] Last Admin: 06/07/17 17:32 Dose: 20 mg Insulin Human Regular (Novolin R) 0 unit SC ACHS [facility] PRN Reason: Protocol Last Admin: 06/07/17 17:26 Dose: 4 unit Methylprednisolone (Solu-Medrol) 40 mg IVP BID [facility] Last Admin: 06/07/17 17:31 Dose: 40 mg Fluticasone/Salmeterol (Advair Diskus 250/50) 1 puff INH RQ12 [facility] Last Admin: 06/07/17 07:55 Dose: 1 puff - Labs Labs: 06/07/17 06:10 06/07/17 06:10 Attending/Attestation - Attestation I have personally seen and examined this patient.: Yes I have fully participated in the care of the patient.: Yes I have reviewed all pertinent clinical information, including history, physical exam and plan: Yes Notes (Text): 06/07/17 17:51 Medical attending: Patient was seen and examined by me, agree the above note by biomedical equipment support specialist. The patient was sitting up out of bed, he did actually look relatively stable, this being said he still had some minimal Rales and crackles on lung exam. He also had noticed some lower extremity edema as well. Will try lasix 20 IV BID. Probably DC tommorow. He is homeless so will need to send with a supply of medication as well as transportation. Thank you very much, Fito Bacon
[2017-06-08] MEDS: Albuterol-Ipratrop 3 mg / 0.5 (3 ml) UD INH SCH ×3 (03:09→11:19)
[2017-06-08 06:40] LABS: BASO % 0.1 % (0.0-2.0); HEMATOCRIT 35.6 % (35.0-51.0); LYMPH # 0.9 K/uL (1.0-4.3); LYMPH % 10.3 % (20.0-40.0); MEAN CELL VOLUME 77.6 fL (80.0-94.0); MEAN CORPUSCULAR HEMOGLOBIN 24.3 pg (27.0-31.0); MEAN CORPUSCULAR HGB CONC 31.4 g/dL (33.0-37.0); MEAN PLATELET VOLUME 8.1 fL (7.2-11.7); MONO # 0.8 K/uL (0.0-0.8); WHITE BLOOD COUNT 8.8 K/uL (4.8-10.8)
[2017-06-08 07:10] LABS: CHLORIDE 95 mmol/L (98-107); POTASSIUM 4.6 mmol/L (3.6-5.2); SODIUM 132 mmol/L (132-148)
[2017-06-08 07:12] LABS: GFR AFRICAN-AMERICAN > 60
[2017-06-08 07:13] LABS: ALB/GLOB RATIO 0.7 (1.0-2.1); ALKALINE PHOSPHATASE 96 U/L (38-126); ALT/SGPT 34 U/L (21-72); AST/SGOT 18 U/L (17-59); BILIRUBIN,TOTAL 0.6 mg/dL (0.2-1.3); BLOOD UREA NITROGEN 25 mg/dL (9-20); CARBON DIOXIDE 28 mmol/L (22-30); GLUCOSE,RANDOM 220 mg/dL (75-110)
[2017-06-08 07:14] LABS: CALCIUM 8.3 mg/dl (8.6-10.4)
[2017-06-08 07:17] VITALS: BP 133/75; PULSE 75; TEMP 97.9; O2SAT 96
[2017-06-08] MEDS: Fluticasone-Salmeterol 250-50mcg Diskus INH SCH (07:20)
[2017-06-08] MEDS: (Novolin R) Insulin Human Regular 100 units/ml vial SC SCH ×2 (08:02→12:19)
[2017-06-08] MEDS ORDERED: Azithromycin 500 MG in Sodium Chloride 0.9% 250 ML IVPB SCH (10:00)
[2017-06-08] MEDS: Enoxaparin 40 mg Syringe SC SCH (10:31)
[2017-06-08] MEDS: MethylPREDNISolone 40 mg Vial IVP SCH (10:31)
--- NOTE | 2017-06-08 13:23 | CP.PCM.DIS ---
<Negrito Delgado R - Last Filed: 06/08/17 13:15> Provider - Provider Date of Admission: 06/06/17 15:42 Attending physician: Anamika Cardozo MD Primary care physician: PMD: Dr Escobar Consults: none Time Spent in preparation of Discharge (in minutes): 45 Diagnosis - Discharge Diagnosis (1) COPD exacerbation Status: Resolved Priority: Medium (2) Anemia Status: Chronic (3) DM type 2 (diabetes mellitus, type 2) Status: Chronic (4) Pulmonary fibrosis Status: Chronic (5) Homeless Status: Chronic (6) Prophylactic measure Status: Acute Hospital Course - Lab Results Lab Results: Most Recent Lab Values WBC 8.8 K/uL (4.8-10.8) 06/08/17 06:24 RBC 4.58 Mil/uL (4.40-5.90) 06/08/17 06:24 Hgb 11.2 g/dL (12.0-18.0) L 06/08/17 06:24 Hct 35.6 % (35.0-51.0) 06/08/17 06:24 MCV 77.6 fL (80.0-94.0) L 06/08/17 06:24 MCH 24.3 pg (27.0-31.0) L 06/08/17 06:24 MCHC 31.4 g/dL (33.0-37.0) L 06/08/17 06:24 RDW 18.0 % (11.5-14.5) H 06/08/17 06:24 Plt Count 228 K/uL (130-400) 06/08/17 06:24 MPV 8.1 fL (7.2-11.7) 06/08/17 06:24 Neut % (Auto) 80.6 % (50.0-75.0) H 06/08/17 06:24 Lymph % (Auto) 10.3 % (20.0-40.0) L 06/08/17 06:24 Lynn % (Auto) 9.0 % (0.0-10.0) 06/08/17 06:24 Eos % (Auto) 0.0 % (0.0-4.0) 06/08/17 06:24 Baso % (Auto) 0.1 % (0.0-2.0) 06/08/17 06:24 Neut # 7.1 K/uL (1.8-7.0) H 06/08/17 06:24 Lymph # 0.9 K/uL (1.0-4.3) L 06/08/17 06:24 Lynn # 0.8 K/uL (0.0-0.8) 06/08/17 06:24 Eos # 0.0 K/uL (0.0-0.7) 06/08/17 06:24 Baso # 0.0 K/uL (0.0-0.2) 06/08/17 06:24 Neutrophils % (Manual) 81 % (50-75) H 06/07/17 06:10 Band Neutrophils % 5 % (0-2) H 06/07/17 06:10 Lymphocytes % (Manual) 6 % (20-40) L 06/07/17 06:10 Monocytes % (Manual) 8 % (0-10) 06/07/17 06:10 Platelet Estimate Normal (NORMAL) 06/07/17 06:10 Polychromasia Slight 06/05/17 13:49 Hypochromasia (manual) Slight 06/07/17 06:10 Anisocytosis (manual) Slight 06/07/17 06:10 Microcytosis (manual) Slight 06/05/17 13:49 Ovalocytes Slight 06/07/17 06:10 Sodium 132 mmol/L (132-148) 06/08/17 06:24 Potassium 4.6 mmol/L (3.6-5.2) 06/08/17 06:24 Chloride 95 mmol/L (98-107) L 06/08/17 06:24 Carbon Dioxide 28 mmol/L (22-30) 06/08/17 06:24 Anion Gap 14 (10-20) 06/08/17 06:24 BUN 25 mg/dL (9-20) H 06/08/17 06:24 Creatinine 0.8 mg/dL (0.8-1.5) 06/08/17 06:24 Est GFR ( Amer) > 60 06/08/17 06:24 Est GFR (Non-Af Amer) > 60 06/08/17 06:24 POC Glucose (mg/dL) 309 mg/dL (65-110) H 06/08/17 11:14 Random Glucose 220 mg/dL (75-110) H 06/08/17 06:24 Hemoglobin A1c 8.0 % (4.2-6.5) H 06/05/17 11:10 Calcium 8.3 mg/dl (8.6-10.4) L 06/08/17 06:24 Total Bilirubin 0.6 mg/dL (0.2-1.3) 06/08/17 06:24 AST 18 U/L (17-59) 06/08/17 06:24 ALT 34 U/L (21-72) 06/08/17 06:24 Alkaline Phosphatase 96 U/L (38-126) 06/08/17 06:24 CK-MB (Mass) 1.24 ng/mL (0.0-3.38) 06/04/17 10:36 Troponin I < 0.0120 ng/mL (0.00-0.120) 06/04/17 10:36 NT-Pro-B Natriuret Pep 138 pg/mL (0-900) 06/04/17 10:36 Total Protein 7.0 g/dL (6.3-8.3) 06/08/17 06:24 Albumin 2.9 g/dL (3.5-5.0) L 06/08/17 06:24 Globulin 4.1 gm/dL (2.2-3.9) H 06/08/17 06:24 Albumin/Globulin Ratio 0.7 (1.0-2.1) L 06/08/17 06:24 Lipase 135 U/L (23-300) 06/04/17 10:36 Urine Color Yellow (YELLOW) 06/04/17 12:10 Urine Clarity Clear (Clear) 06/04/17 12:10 Urine pH 5.0 (5.0-8.0) 06/04/17 12:10 Ur Specific [place] 1.026 (1.003-1.030) 06/04/17 12:10 Urine Protein Negative mg/dL (NEGATIVE) 06/04/17 12:10 Urine Glucose (UA) Normal mg/dL (Normal) 06/04/17 12:10 Urine Ketones Negative mg/dL (NEGATIVE) 06/04/17 12:10 Urine Blood Negative (NEGATIVE) 06/04/17 12:10 Urine Nitrate Negative (NEGATIVE) 06/04/17 12:10 Urine Bilirubin Negative (NEGATIVE) 06/04/17 12:10 Urine Urobilinogen Normal mg/dL (0.2-1.0) 06/04/17 12:10 Ur Leukocyte Esterase Neg Ewa/uL (Negative) 06/04/17 12:10 Urine WBC (Auto) 3 /hpf (0-5) 06/04/17 12:10 Urine RBC (Auto) 1 /hpf (0-3) 06/04/17 12:10 Ur Squamous Epith Cells 1 /hpf (0-5) 06/04/17 12:10 Calcium Oxalate Crystal Mod /hpf (<OCC) H 06/04/17 12:10 Urine Bacteria Rare (<OCC) 06/04/17 12:10 - Hospital Course Hospital Course: History of Present Illness: This is a 76 year old homeless male with a past medical history COPD and Pulmonary Fibrosis, who was brought to the ED by EMS after he was found sleeping at [facility] and the complained of shortness of breath. He still currently complains of shortness of breath. He's had previous admissions for the same complaint. He is a poor historian and some of the history was collected from previous notes. He denies chest pain, fever, chills, dizziness, nausea and vomiting. 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 He was admitted to [facility] [place] also with a COPD exacerbation. CXR done on 06/04/17 showed no active disease. He was given Azithromycin 500mg ivpb qd. For breathing treatment, he was given Duonebs via nebulizer q4h, solu-medrol 40mg ivp bid, and Advair 1 puff q12h. His breathing markedly improved upon discharge as he was ambulating without being short of breath and saturating well. He had some bilateral swelling in his legs thus he was given lasix 20mg ivp bid. Chart review showed DM2 with an HbA1C of 8.0 thus he was put on an insulin sliding scale, diabetic diet and accuchecks. This is a homeless gentleman thus social work was involved to help him find placement at a long term upon discharge. A voucher was also given so he may leave the hospital with the necessary discharge medications as it is unlikely this homeless patient with dementia will fill out the scripts on his own. Discharge Exam - Head Exam Head Exam: ATRAUMATIC, NORMAL INSPECTION - Additional Findings Additional findings: - Constitutional Appears: No Acute Distress, Unkempt - Head Exam Head Exam: ATRAUMATIC, NORMAL INSPECTION - Eye Exam Eye Exam: EOMI - ENT Exam ENT Exam: Mucous Membranes Moist - Neck Exam Neck exam: Positive for: Normal Inspection. Negative for: Tenderness - Respiratory Exam Respiratory Exam: absent: wheezing - Cardiovascular Exam Cardiovascular Exam: REGULAR RHYTHM, RRR, +S1, +S2. absent: Bradycardia, Tachycardia, Irregular Rhythm - GI/Abdominal Exam GI & Abdominal Exam: Normal Bowel Sounds, Soft. absent: Tenderness - Extremities Exam Extremities exam: Positive for: normal inspection. Negative for: pedal edema Additional comments: digital clubbing noted - Back Exam Back exam: NORMAL INSPECTION - Neurological Exam Neurological exam: Alert, Oriented x3 - Psychiatric Exam Psychiatric exam: Normal Affect, Normal Mood - Skin Skin Exam: Intact, Normal Color, Warm Discharge Plan - Discharge Medications Prescriptions: Albuterol HFA [Ventolin HFA 90 mcg/actuation (8 g)] 2 puff IH Q4 PRN #1 inhaler PRN Reason: Shortness Of Breath Fluticasone Propionate [Flovent Hfa] 0.11 mg IH Q12H #1 ml Furosemide [Lasix] 20 mg PO DAILY #10 udc Methylprednisolone Sod Succ [Solu-Medrol] 10 gm PO TID #8 pds - Follow Up Plan Condition: STABLE Disposition: HOME/ ROUTINE Instructions: Furosemide (By mouth), Albuterol (By breathing), Methylprednisolone (By mouth), Fluticasone (By breathing), COPD (Chronic Obstructive Pulmonary Disease) (DC), Dyspnea (GEN) Additional Instructions: Patient is medically stable for discharge. Patient will be discharged with the following NEW medications: Albuterol HFA 2 puff IH q4h prn for shortness of breath Fluticasone Propionate 0.11mg IH q12h Furosemide 20mg po qd Methylprednisolone 10mg po tid Patient is to continue his home medication as previously prescribed. A rn social services/senior case manager will help the patient seek placement in a long term as the patient is homeless. Patient is to follow-up with his PMD in 1 week. If symptoms return or worsen, the patient is to return to the ER. <Fito Bacon - Last Filed: 06/08/17 18:03> Provider - Provider Date of Admission: 06/06/17 15:42 Attending physician: Anamika Cardozo MD Hospital Course - Lab Results Lab Results: Most Recent Lab Values WBC 8.8 K/uL (4.8-10.8) 06/08/17 06:24 RBC 4.58 Mil/uL (4.40-5.90) 06/08/17 06:24 Hgb 11.2 g/dL (12.0-18.0) L 06/08/17 06:24 Hct 35.6 % (35.0-51.0) 06/08/17 06:24 MCV 77.6 fL (80.0-94.0) L 06/08/17 06:24 MCH 24.3 pg (27.0-31.0) L 06/08/17 06:24 MCHC 31.4 g/dL (33.0-37.0) L 06/08/17 06:24 RDW 18.0 % (11.5-14.5) H 06/08/17 06:24 Plt Count 228 K/uL (130-400) 06/08/17 06:24 MPV 8.1 fL (7.2-11.7) 06/08/17 06:24 Neut % (Auto) 80.6 % (50.0-75.0) H 06/08/17 06:24 Lymph % (Auto) 10.3 % (20.0-40.0) L 06/08/17 06:24 Lynn % (Auto) 9.0 % (0.0-10.0) 06/08/17 06:24 Eos % (Auto) 0.0 % (0.0-4.0) 06/08/17 06:24 Baso % (Auto) 0.1 % (0.0-2.0) 06/08/17 06:24 Neut # 7.1 K/uL (1.8-7.0) H 06/08/17 06:24 Lymph # 0.9 K/uL (1.0-4.3) L 06/08/17 06:24 Lynn # 0.8 K/uL (0.0-0.8) 06/08/17 06:24 Eos # 0.0 K/uL (0.0-0.7) 06/08/17 06:24 Baso # 0.0 K/uL (0.0-0.2) 06/08/17 06:24 Neutrophils % (Manual) 81 % (50-75) H 06/07/17 06:10 Band Neutrophils % 5 % (0-2) H 06/07/17 06:10 Lymphocytes % (Manual) 6 % (20-40) L 06/07/17 06:10 Monocytes % (Manual) 8 % (0-10) 06/07/17 06:10 Platelet Estimate Normal (NORMAL) 06/07/17 06:10 Polychromasia Slight 06/05/17 13:49 Hypochromasia (manual) Slight 06/07/17 06:10 Anisocytosis (manual) Slight 06/07/17 06:10 Microcytosis (manual) Slight 06/05/17 13:49 Ovalocytes Slight 06/07/17 06:10 Sodium 132 mmol/L (132-148) 06/08/17 06:24 Potassium 4.6 mmol/L (3.6-5.2) 06/08/17 06:24 Chloride 95 mmol/L (98-107) L 06/08/17 06:24 Carbon Dioxide 28 mmol/L (22-30) 06/08/17 06:24 Anion Gap 14 (10-20) 06/08/17 06:24 BUN 25 mg/dL (9-20) H 06/08/17 06:24 Creatinine 0.8 mg/dL (0.8-1.5) 06/08/17 06:24 Est GFR ( Amer) > 60 06/08/17 06:24 Est GFR (Non-Af Amer) > 60 06/08/17 06:24 POC Glucose (mg/dL) 309 mg/dL (65-110) H 06/08/17 11:14 Random Glucose 220 mg/dL (75-110) H 06/08/17 06:24 Hemoglobin A1c 8.0 % (4.2-6.5) H 06/05/17 11:10 Calcium 8.3 mg/dl (8.6-10.4) L 06/08/17 06:24 Total Bilirubin 0.6 mg/dL (0.2-1.3) 06/08/17 06:24 AST 18 U/L (17-59) 06/08/17 06:24 ALT 34 U/L (21-72) 06/08/17 06:24 Alkaline Phosphatase 96 U/L (38-126) 06/08/17 06:24 CK-MB (Mass) 1.24 ng/mL (0.0-3.38) 06/04/17 10:36 Troponin I < 0.0120 ng/mL (0.00-0.120) 06/04/17 10:36 NT-Pro-B Natriuret Pep 138 pg/mL (0-900) 06/04/17 10:36 Total Protein 7.0 g/dL (6.3-8.3) 06/08/17 06:24 Albumin 2.9 g/dL (3.5-5.0) L 06/08/17 06:24 Globulin 4.1 gm/dL (2.2-3.9) H 06/08/17 06:24 Albumin/Globulin Ratio 0.7 (1.0-2.1) L 06/08/17 06:24 Lipase 135 U/L (23-300) 06/04/17 10:36 Urine Color Yellow (YELLOW) 06/04/17 12:10 Urine Clarity Clear (Clear) 06/04/17 12:10 Urine pH 5.0 (5.0-8.0) 06/04/17 12:10 Ur Specific [place]and 1.026 (1.003-1.030) 06/04/17 12:10 Urine Protein Negative mg/dL (NEGATIVE) 06/04/17 12:10 Urine Glucose (UA) Normal mg/dL (Normal) 06/04/17 12:10 Urine Ketones Negative mg/dL (NEGATIVE) 06/04/17 12:10 Urine Blood Negative (NEGATIVE) 06/04/17 12:10 Urine Nitrate Negative (NEGATIVE) 06/04/17 12:10 Urine Bilirubin Negative (NEGATIVE) 06/04/17 12:10 Urine Urobilinogen Normal mg/dL (0.2-1.0) 06/04/17 12:10 Ur Leukocyte Esterase Neg Ewa/uL (Negative) 06/04/17 12:10 Urine WBC (Auto) 3 /hpf (0-5) 06/04/17 12:10 Urine RBC (Auto) 1 /hpf (0-3) 06/04/17 12:10 Ur Squamous Epith Cells 1 /hpf (0-5) 06/04/17 12:10 Calcium Oxalate Crystal Mod /hpf (<OCC) H 06/04/17 12:10 Urine Bacteria Rare (<OCC) 06/04/17 12:10 Attending/Attestation - Attestation I have personally seen and examined this patient.: Yes I have fully participated in the care of the patient.: Yes I have reviewed all pertinent clinical information, including history, physical exam and plan: Yes Notes (Text): 06/08/17 18:03 Medical attending: Patient was seen and examined by me, agrees the above note by bilingual medical receptionist. Recommend try discharge this patient today. Unfortunately per my review of medical records he seems to have a habit of going from hospital to hospital. With complaints of breathing exacerbations. I asked the resident to fill out the forms so that he could go to supply of medications Hopefully the patient will follow-up at [facility] care clinic When I saw the patient today I explained to him that he would be discharged, however later on the nurses explained to me that then changed his mind and is wanting to stay hopefully will not come to this but we may require security to escourt the patient out. As documented above he's been recently at [facility], and now he's here at [facility]. Thank you very much, Fito Bacon
== END 2017-06-08 16:00 | disposition home or self-care (01) | DRG 192 ==
LOC: C.ER 06:19 → C.9E 13:42 → C.3T 14:43 → OBSVTOIN 06-06 15:42 → C.3T 06-06 17:41
PROVIDERS: ADMIT Internal Medicine; ATTEND Internal Medicine
DX: J44.1 Chronic obstructive pulmonary disease with (acute) exacerbation (principal); J84.10 Pulmonary fibrosis, unspecified; F03.90 Unspecified dementia, unspecified severity, without behavioral disturbance, psychotic disturbance, mood disturbance, and anxiety; E11.9 Type 2 diabetes mellitus without complications; F41.9 Anxiety disorder, unspecified; D63.8 Anemia in other chronic diseases classified elsewhere; Z59.0 Homelessness; Z79.4 Long term (current) use of insulin